=== PATIENT | female | born 1995 | race Caucasian/White ===

== ENCOUNTER 2016-08-12 10:26 | Inpatient (IN) | payer MEDICAID ==
[~2016-08-12 10:26] MED LIST: BACTRIM DS TAB1 EAC2 PO; IBUPROFEN200 M2 PO; METROGEL-VAGINA70 G1 VG; MULTIVITAMINS1 EAC6 PO; NO MEDS CURRENTLY; ZANTAC150 M1 PO
[2016-08-12] MEDS ORDERED: PRENATAL 19 CH1 EAC1 PO (10:38)
[2016-08-12 11:46] LABS: BASO % 0.2 % (0-2); EOS % 0.7 % (0-7); EOSINOPHIL ABSOLUTE COUNT 0.1 tho/cmm (0.0-0.7); HCT-HEMATOCRIT 34.8 % (34.0-49.0); HGB-HEMOGLOBIN 12.1 gm/dl (12.0-15.5); IMMATURE GRANULOCYTES ABSOLUTE 0.05 tho/cmm (0-0.03); IMMATURE GRANULOCYTES PERCENT 0.4 % (0-0.3); LYMPH % 12.5 % (20-45); LYMPH ABSOLUTE COUNT 1.8 tho/cmm (0.8-4.5); MCH (MEAN CORPUSCULAR HGB) 28.2 pg (28.0-32.0); MCHC MEAN CORPUSCULAR HGB CONC 34.8 % (32.0-36.0); MCV (MEAN CELL VOLUME) 81.1 fl (82.0-96.0); MEAN PLATELET VOLUME 10.1 cmc (9.4-12.4); MONO % 3.1 % (0-12); MONOCYTE ABSOLUTE COUNT 0.4 tho/cmm (0.0-1.2); NEUTROPHIL ABSOLUTE COUNT 11.8 tho/cmm (1.6-8.0); NEUTROPHIL-AUTOMATED 11.8 tho/cmm (1.6-8.0); NEUTROPHILS % 83.1 % (40-80); PLATELET COUNT 239 tho/cmm (150-450); RED BLOOD COUNT 4.29 mil/cmm (4.00-5.20); RED CELL DISTRIBUTION WIDTH 13.8 % (12.4-16.4); WHITE BLOOD COUNT 14.2 tho/cmm (4.0-10.0)
[2016-08-12 12:06] LABS: ANION GAP 16 mmol/L (0-20); BLOOD UREA NITROGEN 7 mg/dl (6-24); CALCIUM 8.6 mg/dl (8.5-10.5); CARBON DIOXIDE-VENOUS 21 mmol/L (22-32); CHLORIDE 108 mmol/l (96-110); CREATININE 0.61 mg/dl (0.50-1.10); GLUCOSE 106 mg/dL (70-110); POTASSIUM 3.6 mmol/L (3.7-5.1); SODIUM 141 mmol/L (135-145); eGFR VALUE FOR BLACK >90 mL/Min
[2016-08-12 12:17] LABS: ESR-ERYTHROCYTE SED RATE 21 mm/hr (0-20)
--- NOTE | 2016-08-13 08:45 | NUR ---
DR CAPELLAN HERE TO ROUND ON PT. STATES PT MAY GO HOME AFTER 24 HOURS OF IV ABX. WILL SEND WITH RX.
--- NOTE | 2016-08-13 11:00 | NUR ---
DR DOZIER'S PA ROUNDS ON PT. STATES OK FOR DISCHARGE. PT WILL F/U IN 1 WEEK AT [facility] OFFICE.
== END 2016-08-13 12:41 | DRG 603 ==
LOC: EDMED 10:26 → EMR2 14:25 → OBGD 15:41
PROVIDERS: Emergency Medicine; ADMIT Obstetrics & Gynecology
PROC: 3E0234Z Introduction of Serum, Toxoid and Vaccine into Muscle, Percutaneous Approach (ICD-10-PCS; principal; 2016-08-12)
DX: L03.114 Cellulitis of left upper limb (principal); Z91.018 Allergy to other foods; W55.01XA Bitten by cat, initial encounter; Z3A.23 23 weeks gestation of pregnancy
CPT/HCPCS: J0295; J2543